=== PATIENT | female | born 1980 | race Caucasian/White ===

== ENCOUNTER 2019-02-22 19:52 | Emergency (ER) | payer OTHER ==
[~2019-02-22] VITALS: Ht 160 cm; Wt 101.4 kg
[2019-02-22 20:09] VITALS: Ht 160 cm; Wt 101.4 kg
[2019-02-22 20:55] VITALS: BP 140/84
== END 2019-02-22 20:55 | disposition home or self-care (01) ==
LOC: ED 19:52
DX: J06.9 Acute upper respiratory infection, unspecified (principal); H92.03 Otalgia, bilateral; Z90.49 Acquired absence of other specified parts of digestive tract; Z88.5 Allergy status to narcotic agent